=== PATIENT | female | born 1980 | race Hispanic/Latino ===

== ENCOUNTER 2016-08-19 06:01 | Inpatient (IN) ==
[2016-08-19] MEDS ORDERED: MINERAL OIL PO PRN (06:45)
[2016-08-19] MEDS ORDERED: BENADRYL IV PRN (06:45)
[2016-08-19] MEDS ORDERED: AMBIEN PO PRN (06:45)
[2016-08-19] MEDS ORDERED: HYDROXYZINE IM PRN (06:45)
[2016-08-19] MEDS ORDERED: BOOSTRIX VACCINE IM ONE (06:45)
[2016-08-19] MEDS ORDERED: CYTOTEC PO PRN (06:45)
[2016-08-19] MEDS ORDERED: NORCO-10 PO PRN (06:45)
[2016-08-19] MEDS ORDERED: HYDROXYZINE PO PRN (06:45)
[2016-08-19] MEDS ORDERED: PITOCIN 20 UNITS/LR 20 UNITS/1,000 ML IV.SOLN IV SCH (06:45)
[2016-08-19] MEDS ORDERED: XYLOCAINE-MPF 1% INJ PRN (06:45)
[2016-08-19] MEDS ORDERED: M-M-R II VACCINE SUBQ ONE (06:45)
[2016-08-19] MEDS ORDERED: NORCO-5 PO PRN (06:45)
[2016-08-19] MEDS ORDERED: PITOCIN 30 UNITS/LR 30 UNITS/500 ML IV.SOLN IV ONE (06:45)
[2016-08-19] MEDS ORDERED: PITOCIN IM PRN (06:45)
[2016-08-19] MEDS ORDERED: BENADRYL PO PRN (06:45)
[2016-08-19] MEDS ORDERED: PERI MEDS (DERMOPLAST/NUPERCAINAL/TUCKS) MISC PRN (06:45)
[2016-08-19 07:03] LABS: MANUAL DIFF NEEDED? NO
[2016-08-19 07:11] LABS: BASO% 0.3 % (0.0-0.8); EOS# 0.06 X1000 (0.0-0.7); EOS% 0.5 % (0.0-10.0); HEMOGLOBIN 11.4 g/dL (12.0-16.0); IMM GRAN# 0.08 X1000 (0.0-0.04); IMM GRAN% 0.7 % (0.0-0.5); LYMPH# 1.84 X1000 (1.2-3.4); LYMPH% 15.7 % (20.5-51.1); MCH 27.4 PG (27-31); MCHC 32.6 g/dL (33-37); MCV 84.1 FL (81-99); MONO# 0.55 X1000 (0.11-0.59); MONO% 4.7 % (1.7-9.3); MPV 12.3 FL (7.4-10.4); NEUT% 78.1 % (42.2-75.2); PLT 158 X1000 (130-400); RBC 4.16 XMIL (4.2-5.4)
[2016-08-19] MEDS: MOTRIN PO PRN ×2 (07:48→21:07)
--- NOTE | 2016-08-19 08:53 | HISTORY AND PHYSICAL ---
CONDITION: Stable. 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 At this point, she is on Labor and Delivery, stable, with the placenta not delivered. PAST OBSTETRICAL HISTORY: Was 6 and now 7 previous vaginal deliveries. PAST MEDICAL HISTORY: She has no medical problems. PAST SURGICAL HISTORY: She has no past surgical history. ALLERGIES: She has no known drug allergies. MEDICATIONS: She is on no medications. SOCIAL HISTORY: She denies tobacco, alcohol, or drug use. She is . PHYSICAL EXAMINATION: VITAL SIGNS: Her vital signs are stable. She is afebrile. GENERAL: She is alert and cooperative, in no distress. NECK: Supple. LUNGS: Clear. HEART: Regular sinus rhythm. ABDOMEN: Soft. The uterus is firm. She has had minimal vaginal bleeding. EXTREMITIES: No cyanosis, clubbing, or edema in her extremities. PROCEDURE: As the patient is placed in a dorsal lithotomy and the bed is broken down, there is a Nidhi on the cord, so gentle traction resulted in almost immediate delivery of the placenta, which was inspected and found to be intact. Then, the vagina and perineum were inspected, and there were no lacerations or tears. No blood clots, no foreign material, so at this point her delivery is completed. All counts were correct. Unsure of the estimated blood loss; approximately none for delivery of the placenta. ASSESSMENT: As above. PLAN: Routine care. DIAGNOSTIC DATA: She does have O-positive blood type, and as far as laboratory values from March, her HIV is presumptive negative. RPR and hepatitis B both nonreactive and rubella immune. cc: Brice Thacker MD
[2016-08-19] MEDS: PERICOLACE PO SCH (21:06)
[2016-08-20 06:55] LABS: BASO% 0.4 % (0.0-0.8); EOS# 0.08 X1000 (0.0-0.7); EOS% 0.9 % (0.0-10.0); HEMATOCRIT 30.4 % (37.0-47.0); HEMOGLOBIN 9.6 g/dL (12.0-16.0); IMM GRAN# 0.03 X1000 (0.0-0.04); IMM GRAN% 0.3 % (0.0-0.5); LYMPH# 2.67 X1000 (1.2-3.4); LYMPH% 29.6 % (20.5-51.1); MANUAL DIFF NEEDED? YES; MCHC 31.6 g/dL (33-37); MCV 85.6 FL (81-99); MONO# 0.49 X1000 (0.11-0.59); MONO% 5.4 % (1.7-9.3); MPV 12.9 FL (7.4-10.4); NEUT% 63.4 % (42.2-75.2); PLT 160 X1000 (130-400); RBC 3.55 XMIL (4.2-5.4)
[2016-08-20 08:09] LABS: EOS 1 % (1-10); LYMPHS 30 % (21-51); MONO 4 % (1-9)
[2016-08-20] MEDS: PERICOLACE PO SCH (20:30)
[2016-08-21 08:14] VITALS: BP 124/66
== END 2016-08-21 11:45 | disposition home or self-care (01) ==
LOC: P.LD 06:01 → P.WC 16:08
PROVIDERS: ADMIT Obstetrics & Gynecology; ATTEND Obstetrics & Gynecology